=== PATIENT | female | born 1945 | race Caucasian/White ===

== ENCOUNTER 2017-07-05 09:02 | Inpatient (IN) ==
[~2017-07-05 09:02] MED LIST: ACETAMINOPHEN 500 MG TABLET PO ONE; DEXAMETHASONE 4 MG/ML INJECTION IVP ONE; EPINEPHrine PF 0.25 MG, BUPIVACAINE 0.25% PF 30 ML, MORPHINE SULFATE 15 MG, KETOROLAC I... OPSITE ONE; FAMOTIDINE PB 20 MG/50 ML BAG IV ONE; LIDOCAINE 1% (10mg/ml) 2mL INJ PF SDV ID ONE; METOCLOPRAMIDE 10mg/2ml INJECTION IVP ONE; ONDANSETRON 4 MG/2 ML INJECTION IVP ONE
[2017-07-05 09:29] VITALS: BMI 32.3
[2017-07-05] MEDS ORDERED: NS FLUSH BAG 500ml IV PRN (09:39)
[2017-07-05] MEDS: LR 1,000 ML IV SCH ×2 (10:05→13:22)
[2017-07-05] MEDS: NOZIN NASAL SWAB NAS ONE ×3 (11:23→11:25)
--- NOTE | 2017-07-05 11:46 | Anesthesia Preoperative Report ---
Anesthesia Preoperative Record - Date and Time Date: 07/05/17 Preoperative Diagnosis: Rt JASPER M16.11 Proposed Procedure: Right total hip NPO Since Date: 07/05/17 NPO Since Time: 00:00 Allergies/Adverse Reactions: Allergies Allergy/AdvReac Type Severity Reaction Status Date / Time cephalexin [From Keflex] AdvReac Verified 07/05/17 09:48 - Vital Signs Vital Signs: Temperature 98.7 F 07/05/17 09:27 Pulse Rate 112 H 07/05/17 09:27 Respiratory Rate 16 07/05/17 09:27 Blood Pressure 167/93 H 07/05/17 09:27 Pulse Oximetry 96 07/05/17 09:27 Height and Weight: Height 1.52 m Weight 75 kg Body Mass Index 32.3 - Medications Inpatient Medications: Current Medications Epinephrine HCl 0.25 mg/Bupivacaine HCl 30 ml/Morphine Sulfate 15 mg/Ketorolac Tromethamine 60 mg/Sodium Chloride 65.25 mls @ 1 mls/hr OPSITE INTRAOP ONE PRN Reason: Protocol Stop: 07/08/17 01:14 Lactated Ringer's (Lactated Ringers) 1,000 mls @ 50 mls/hr IV .Q20H BERNICE Last Admin: 07/05/17 10:05 Dose: 50 mls/hr Isopropyl Alcohol (Nozin Nasal Swab) 1 each ANA PREOP ONE Stop: 07/05/17 14:53 Last Admin: 07/05/17 11:25 Dose: 1 each Sodium Chloride (Iv Flush) 10 - 80 ml IV PRN PRN PRN Reason: Flushing Sodium Chloride (Normal Saline) 500 ml IV PRN PRN Last Admin: 07/05/17 10:18 Dose: 500 ml Tranexamic Acid (Cyklokapron) 1,000 mg TOP INTRAOP ONE Stop: 07/05/17 14:53 Home Medications: Home Medications Medication Instructions Recorded Confirmed Type Advil (Ibuprofen) 200 mg capsule 400 mg PO DAILY PRN #0 cap 11/28/16 07/05/17 History Vitamin D3 (cholecalciferol) 1,000 1,000 unit PO DAILY cap 11/28/16 07/05/17 History unit capsule biotin 5 mg capsule 5 mg PO DAILY cap 11/28/16 07/05/17 History omega 9-rvu-bxm-fish oil 1,000 mg 1 cap PO DAILY cap 11/28/16 07/05/17 History (120 mg-180 mg) capsule Tramadol HCl [Ultram] 50 mg PO BID 07/05/17 07/05/17 History Warfarin [Coumadin] 2.5 mg PO 3XW 07/05/17 07/05/17 History Warfarin [Coumadin] 5 mg PO 4XW 07/05/17 07/05/17 History Is Patient on Beta Stephen?: Yes Beta Stephen Last Dose Date/Time: 07/05/17 @0830 - Medical History Respiratory: Reports: Asthma (does not use inhalers), Pneumonia (in the s) DENIES: Sleep Apnea Cardiovascular: Reports: Abnormal EKG, Arrhythmia (AFib HR 115-120), Hypertension, Other (hx endocarditis) Gastrointestional: Reports: Gastroesophageal Reflux Disease Neuro/Musculoskeletal: Reports: HX.MS.OSAR (hips, knees, hands), Back Problems, Muscle Weakness (left arm) - Surgical History Neurological Surgeries: Reports: Other (cervical discectomy with fusion) HEENT Surgeries: Reports: Eye Surgery (blepharoplasty), Other (sinus surgery x2) Cardiac Surgeries/Treatments: Reports: Cardiac Catheterization GI Surgery/Treatments: Reports: Colonoscopy (diverticular disease) Musculoskeletal Surgery/Tx: Reports: Other (right bunionectomy) Anesthesia Reactions: None Hx Family Anesthesia Reaction: No History of Motion Sickness: No - Social History Smoking Status: Former smoker Hx Chewing Tobacco Use: No Second Hand Exposure: No Substance Use Type: does not use Alcohol Intake: never Alcohol Intake Frequency: does not drink - Pertinent Findings Laboratory: CBC and BMP 07/05/17 09:35 07/05/17 09:35 BMP 07/05/17 09:35 Sodium 138 Potassium 4.4 Chloride 102 Carbon Dioxide 26 BUN 15.0 Creatinine 0.7 Glucose 122 H Calcium 9.2 EKG: A-fib with RVR - Physical Exam Respiratory Exam: Present: lungs clear Cardiovascular Exam: Present: regular rate and rhythm - Airway Assessment Mallampati Score: II TMD: 3 Fingerbreadths Neck Extension: fair Overall Assessment: no airway concerns - ASA ASA Score: 3 - Plan Anesthesia: Neuroaxial Regional/Trunk Block: Spinal - Discussion Discussion: Discussed risks/options/alternatives of anesthesia and questions answered. Patient consents. Nursing pain assessment noted. Present for Discussion: spouse Attestation Statement: Prior to the delivery of any anesthetic medication, I examined the patient, developed the plan, obtained the patient's consent and discussed the risk and benefits of the procedure with the patient/guardian. - Additional Information Seen by Anesthesia: Yes
[2017-07-05] MEDS ORDERED: MIDAZOLAM 2mg/2ml INJECTION ONE (12:23)
[2017-07-05] MEDS ORDERED: DiltiaZEM 25 MG/5 ML INJECTION IVP ONE (12:51)
[2017-07-05] MEDS ORDERED: VANCOMYCIN 1,000 MG INJECTION ONE (13:09)
[2017-07-05] MEDS ORDERED: PHENYLEPHRINE INJ 10 MG/ML VIAL IV ONE (13:10)
[2017-07-05] MEDS ORDERED: SALINE FLUSH 10ml SYRINGE ONE (13:11)
[2017-07-05] MEDS ORDERED: PROPOFOL 500 MG/50 ML VIAL ONE ×2 (13:38)
[2017-07-05] MEDS ORDERED: VANCOMYCIN 1,000 MG INJECTION IAR ONE (14:11)
--- NOTE | 2017-07-05 14:20 | Operative Note ---
- Procedure Preoperative Diagnosis: Right hip primary degenerative joint disease Postoperative Diagnosis: Same as preoperative diagnosis. Surgeon: Joe Tipton MD [employer] Maker Hand: Tera Brown Complications: None. Anesthesia: Spinal. Estimated Blood Loss: See Anesthesia Record. Fluids: Please see Anesthesia Record. Description of Procedure: Mrs. Nolen and her right hip were identified and marked in the preoperative holding area. She was brought back to the operating suite and spinal anesthetic was administered. She was then placed in a lateral decubitus position with her right hip up. The right lower extremity was prepped and draped in my normal sterile fashion. Timeout was performed. The [employer] robotic arm was used to assist with the surgery. A pelvic array was placed into the iliac crest through three small incisions. A direct superior approach was utilized. An approximately 15 cm incision was made in the skin and dissection carried down to the muscle fascia which was then split in line with skin incision. A Charnley retractor was placed. The short external rotators were identified and tagged and detached. A capsulotomy was performed and the hip dislocated. A femoral neck osteotomy was performed at the pre-templated level measuring down from the femoral head. The head was removed and acetabulum exposed. Labrum was removed. The acetabulum was then registered with the robot. The robotic arm was then used to ream with a 49 reamer. The robot then was again used to place a 50 Trident cup in 40 of tilt and 25 of anteversion. A liner was then placed. The proximal femur was exposed and prepared with a cookie cutter followed by reaming and broaching to a size 4. We trialed with a - 5 36 mm head. After thorough irrigation a final Accolade 2 size 4 stem with 127 neck was placed. Leg length and offset were checked with the robot and were good. A final -5 ceramic 36 mm head was placed and the hip reduced. Betadine solution was used to irrigate throughout the case. It was followed by normal saline irrigation. Joint cocktail was injected throughout soft tissue. The capsulotomy was repaired with Ethibond. Short external rotators were also repaired with Ethibond. 1 g of vancomycin powder was placed into the wound. The muscle fascia was then repaired with #1 Vicryl. I then left my nurses medical assistants phlebotomists to close the subcutaneous tissue with 2-0 Vicryl followed by running 4-0 Monocryl skin followed by Dermabond and a sterile dressing. The patient with any placed back into supine position and taken to recovery room in the care of anesthesia.
[2017-07-05] MEDS ORDERED: TRANEXAMIC ACID 1,000mg/10ml INJECTION TOP ONE (14:52)
[2017-07-05] MEDS ORDERED: SALINE FLUSH 10ml SYRINGE IV PRN (14:52)
--- NOTE | 2017-07-05 15:31 | XRay Report ---
Indication: postoperative image PROCEDURE: XR pelvis w/ 1 view RT hip: Encounter: Initial Comparison: May 28, 2017 Findings: Postoperative changes of right total hip replacement are seen. There is expected postoperative subcutaneous gas. No evidence of hardware failure or acute fracture. No retained radiopaque surgical instruments or sponges seen. Impression: New right total hip prosthesis without evidence of immediate complication. .
[2017-07-05] MEDS ORDERED: DiphenhydrAMINE 50 MG/ML INJECTION IVP PRN (15:35)
[2017-07-05] MEDS ORDERED: ONDANSETRON 4 MG/2 ML INJECTION IVP PRN (15:35)
[2017-07-05] MEDS ORDERED: NOZIN NASAL SWAB NAS ONE (15:35)
[2017-07-05] MEDS ORDERED: WARFARIN - PHARMACY CONSULT MC ONE (15:35)
[2017-07-05] MEDS ORDERED: DiphenhydrAMINE 25 MG CAPSULE PO PRN (15:35)
[2017-07-05] MEDS ORDERED: LORazepam 1 MG TABLET PO PRN (15:35)
--- NOTE | 2017-07-05 16:07 | Pharmacy Consult ---
Pharmacy Consult-Warfarin - Laboratory Information 07/05/17 09:35 INR 1.14 WARFARIN THERAPY: Day 1 post Right THR. Pt is on chronic Warfarin therapy for A. Fib. Home dose reported as 5mg four times weekly + 2.5mg three times weekly. Noted drug - drug interaction with Omeprazole 40mg po daily, Tramadol 50-100mg q6h prn. Both can increase the INR. Baseline INR was prior to OR. Will give Warfarin 5mg today yet. Start daily INR's in morning. Pt is covered with Enoxaparin 40mg SQ daily until therapeutic. thank you
[2017-07-05] MEDS: NS 1,000 ML IV SCH (16:18)
[2017-07-05] MEDS: ACETAMINOPHEN 325 MG TABLET PO SCH ×2 (16:44→23:14)
[2017-07-05] MEDS ORDERED: WARFARIN 5 MG TABLET PO SCH (17:00)
[2017-07-05] MEDS ORDERED: SENNOSIDES 8.6 MG TABLET PO SCH (21:00)
[2017-07-05] MEDS: DEXAMETHASONE 20 MG/5 ML INJECTION IVP SCH (23:10)
[2017-07-05] MEDS: ENOXAPARIN 40 MG/0.4 ML INJECTION SQ SCH (23:12)
[2017-07-05] MEDS: DOCUSATE SODIUM 100 MG CAPSULE PO SCH (23:15)
[2017-07-05] MEDS: NOZIN NASAL SWAB NAS SCH (23:15)
[2017-07-05] MEDS: TRAMADOL 50 MG TABLET PO PRN (23:30)
[2017-07-06] MEDS: NS 1,000 ML IV SCH (06:43)
[2017-07-06] MEDS: DEXAMETHASONE 20 MG/5 ML INJECTION IVP SCH (06:43)
[2017-07-06] MEDS: NOZIN NASAL SWAB NAS SCH ×2 (06:43→13:53)
--- NOTE | 2017-07-06 08:21 | Pharmacy Consult ---
Pharmacy Consult-Warfarin - Laboratory Information 07/05/17 07/06/17 09:35 04:06 INR 1.14 1.25 H - Consult Information Day 2 post Right THR. Pt is on chronic Warfarin therapy for A. Fib. Home dose reported as 5mg four times weekly + 2.5mg three times weekly. Noted drug - drug interaction with Omeprazole 40mg po daily, Tramadol 50-100mg q6h prn. Both can increase the INR. The goal INR range is 2.0-3.0. Date INR Dose 07/05 1.14 5 mg 07/06 1.25 5 mg I ordered Warfarin 5 mg orally today. The patient is covered with Enoxaparin 40mg SQ daily until the INR is therapeutic. The pharmacy will continue to monitor the INR's and adjust the warfarin accordingly. Thank you for Warfarin Dosing Protocol, Ricki Silvestre, Pharmacist.
[2017-07-06] MEDS: ACETAMINOPHEN 325 MG TABLET PO SCH ×2 (08:32→12:45)
[2017-07-06] MEDS: DOCUSATE SODIUM 100 MG CAPSULE PO SCH (08:33)
--- NOTE | 2017-07-06 08:39 | Orthopedic Progress Note ---
Date: Date: 07/06/17 Time: 835 Subjective/Severity of Illness: Mrs Nolen is doing very well. Pain is controlled. No cough, SOA or CP. She has been up with good tolerance. Takes Coumadin chronically for A fib. She is aware of the need for Lovenox to bridge her. Hgb 11.1 Afeb and VSS. INR 1.25 today. She expects discharge home with her later today. Orthopedic Objective PO Vital signs: Temperature 98 F 07/06/17 03:00 Pulse Rate 119 H 07/06/17 07:00 Respiratory Rate 14 07/06/17 07:00 Blood Pressure 144/69 H 07/06/17 07:00 Pulse Oximetry 99 07/06/17 07:00 Height and Weight: Height 5 ft Weight 179 lb 3.773 oz Body Mass Index 32.3 - Constitutional General Appearance: Present: alert, cooperative, no acute distress - Respiratory Exam Present: non-labored - Cardiovascular Exam Present: pedal pulses intact - Extremities Exam Extremities: Present: pulses intact. Absent: calf tenderness - Surgical Site Incision: Mepilex dressing intact, no drainage, other (Mild drainage on the pin sites of the illiac crest. Will change this today.) - Integumentary Exam Present: pink, warm, dry - Neurological Exam Present: no deficits - Psychiatric Exam Present: alert, normal affect - Labs Result Diagrams: 07/06/17 04:06 07/06/17 04:06 Abnormal lab results 07/05/17 07/05/17 07/06/17 Range/Units 09:35 09:35 04:06 Hgb 11.1 L D (12-16) GM/DL Hct 34.1 L D (36-46) % Lymph % (Auto) 20.6 L (23-45) % [place] % (Auto) 12.4 H (0-9.0) % INR (0.99-1.21) Creatinine (0.7-1.2) MG/DL BUN/Creatinine Ratio (6-26) RATIO Glucose 122 H (65-110) MG/DL 07/06/17 07/06/17 Range/Units 04:06 04:06 Hgb (12-16) GM/DL Hct (36-46) % Lymph % (Auto) (23-45) % [place] % (Auto) (0-9.0) % INR 1.25 H (0.99-1.21) Creatinine 0.6 L (0.7-1.2) MG/DL BUN/Creatinine Ratio 28 H (6-26) RATIO Glucose 146 H (65-110) MG/DL H & H 07/05/17 07/06/17 Range/Units 09:35 04:06 Hgb 14.1 11.1 L D (12-16) GM/DL Hct 43.2 34.1 L D (36-46) % Coagulation 07/05/17 07/06/17 Range/Units 09:35 04:06 INR 1.14 1.25 H (0.99-1.21) Orthopedic Assessment and Plan (1) Primary osteoarthritis of right hip Status: Acute Assessment and Plan: Resume home dose of Coumadin and bridge with Lovenox until INR is therapeutic. Will check an INR next week to confirm adequate coverage, and turn over management to her PCP. SCD's and early mobilization for added DVT coverage. PT/OT services to improve independent function. Discharge Planning per Case Management. - Anticoagulation Therapy Anticoagulation: Resume home anticoagulant (Lovenox x 5 days and check INR next week.) Hospital Course Summary Disclaimer: The visit summary below is not to be considered part of the above Progress Note.
[2017-07-06] MEDS ORDERED: OMEPRAZOLE 20 MG CAPSULE PO SCH (09:00)
[2017-07-06] MEDS ORDERED: POLYETHYL GLYCOL 3350 17gm PACKET PO SCH (09:00)
[2017-07-06] MEDS ORDERED: BENAZEPRIL 10 MG TABLET PO SCH (09:00)
[2017-07-06] MEDS: TRAMADOL 50 MG TABLET PO PRN (09:57)
[2017-07-06] MEDS ORDERED: WARFARIN 5 MG TABLET PO SCH (12:00)
[2017-07-06 12:11] VITALS: BP 116/68; PULSE 110; RESP 12; TEMP 98.6; O2SAT 98
[2017-07-06] MEDS: ENOXAPARIN 40 MG/0.4 ML INJECTION SQ SCH (13:26)
[2017-07-06] MEDS ORDERED: SENNOSIDES 8.6 MG TABLET PO PRN (14:43)
[2017-07-07] MEDS ORDERED: BISACODYL 10 MG SUPPOSITORY RECTALLY SCH (20:00)
== END 2017-07-06 13:45 | disposition home or self-care (01) | DRG 470 ==
LOC: SUR 09:02 → SRG 09:03 → EDSTATUS 11:00 → SRG 15:24
PROVIDERS: ADMIT Orthopaedic Surgery; ATTEND Orthopaedic Surgery

== ENCOUNTER 2017-10-04 06:50 | Inpatient (IN) ==
[~2017-10-04 06:50] MED LIST changes: +CLINDAMYCIN PB 900 MG/50 ML BAG IV ONE; -EPINEPHrine PF 0.25 MG, BUPIVACAINE 0.25% PF 30 ML, MORPHINE SULFATE 15 MG, KETOROLAC I... OPSITE ONE
[2017-10-04 07:07] VITALS: BMI 30.8
[2017-10-04] MEDS: LR 1,000 ML IV SCH ×3 (07:30→10:22)
[2017-10-04] MEDS: NOZIN NASAL SWAB NAS SCH ×6 (07:31→21:08)
--- NOTE | 2017-10-04 07:50 | Anesthesia Preoperative Report ---
Anesthesia Preoperative Record - Date and Time Date: 10/04/17 Preoperative Diagnosis: Rt TKA M17.11 primary osteoarthritis Proposed Procedure: right total knee arthroplasty NPO Since Date: 10/03/17 NPO Since Time: 23:00 Allergies/Adverse Reactions: Allergies Allergy/AdvReac Type Severity Reaction Status Date / Time cephalexin [From Keflex] AdvReac Verified 10/04/17 07:14 - Vital Signs Vital Signs: Temperature 98.5 F 10/04/17 07:05 Pulse Rate 92 10/04/17 07:25 Respiratory Rate 14 10/04/17 07:05 Blood Pressure 150/92 H 10/04/17 07:05 Pulse Oximetry 99 10/04/17 07:05 Height and Weight: Height 1.52 m Weight 71.6 kg Body Mass Index 30.8 - Medications Inpatient Medications: Current Medications Epinephrine HCl 0.25 mg/Bupivacaine HCl 30 ml/Ketorolac Tromethamine 60 mg/ Sodium Chloride 62.25 mls @ 1 mls/hr OPSITE INTRAOP ONE PRN Reason: Protocol Stop: 10/06/17 22:14 Lactated Ringer's (Lactated Ringers) 1,000 mls @ 50 mls/hr IV .Q20H BERNICE Last Admin: 10/04/17 07:30 Dose: 50 mls/hr Isopropyl Alcohol (Nozin Nasal Swab) 1 each ANA Q1M BERNICE Stop: 10/04/17 15:03 Last Admin: 10/04/17 07:35 Dose: 1 each Sodium Chloride (Iv Flush) 10 - 80 ml IV PRN PRN PRN Reason: Flushing Tranexamic Acid (Cyklokapron) 1,000 mg TOP INTRAOP ONE Stop: 10/04/17 15:03 Home Medications: Home Medications Medication Instructions Recorded Confirmed Type Vitamin D3 (cholecalciferol) 1,000 1,000 unit PO DAILY cap 11/28/16 10/04/17 History unit capsule omega 0-qgp-clu-fish oil 1,000 mg 1 cap PO DAILY cap 11/28/16 10/04/17 History (120 mg-180 mg) capsule benazepril 10 mg tablet 10 mg PO DAILY #90 tab 03/29/17 10/04/17 Rx metoprolol tartrate 25 mg tablet 25 mg PO BID #180 tab 10/27/17 04/12/18 Rx ergocalciferol (vitamin D2) 50,000 50,000 unit PO DAILY #2 cap 06/26/17 Rx unit capsule Ultram (Tramadol) 50 mg tablet 50 - 100 mg PO Q6H PRN #60 tab 07/20/17 10/04/17 Rx Flonase (Fluticasone) 50 mcg nasal 1 spray INTRANASAL DAILY PRN #9.9 g 09/25/17 10/04/17 Rx spray Zantac (Ranitidine) 75 mg tablet 75 mg PO BID PRN 09/25/17 10/04/17 History warfarin 5 mg tablet 2.5 mg PO SUWE tab 09/25/17 10/04/17 History warfarin 5 mg tablet 5 mg PO MOTUTHFRSA tab 09/25/17 10/04/17 History ergocalciferol (vitamin D2) 50,000 50,000 unit PO DAILY #2 cap 09/27/17 Rx unit capsule Prilosec (Omeprazole) 40 mg 40 mg PO DAILY #30 cap 10/02/17 10/04/17 Rx capsule,delayed release Is Patient on Beta Stephen?: Yes Beta Stephen Last Dose Date/Time: 0600 - Medical History Respiratory: Reports: Asthma (mild ), Pneumonia DENIES: Sleep Apnea Cardiovascular: Reports: Abnormal EKG, Arrhythmia (AFib), Hypertension, Other ( hx endocarditis) Gastrointestional: Reports: Gastroesophageal Reflux Disease Neuro/Musculoskeletal: Reports: HX.MS.OSAR (hips, knees, hands), Back Problems, Muscle Weakness (left arm), Other (50 yrs ago had endocarditis ) - Surgical History Neurological Surgeries: Reports: Other (cervical discectomy with fusion) HEENT Surgeries: Reports: Eye Surgery (blepharoplasty), Other (sinus surgery x2) Cardiac Surgeries/Treatments: Reports: Cardiac Catheterization GI Surgery/Treatments: Reports: Colonoscopy (diverticular disease), EGD Musculoskeletal Surgery/Tx: Reports: Total Hip Replacement (Rt JASPER 07-05-17), Other (right bunionectomy) Reproductive Surgery/Treatment: Reports: Other (fallopian tube "opened up") Anesthesia Reactions: None Hx Family Anesthesia Reaction: No History of Motion Sickness: No - Social History Smoking Status: Former smoker Hx Chewing Tobacco Use: No Second Hand Exposure: No Substance Use Type: does not use Alcohol Intake: never Alcohol Intake Frequency: does not drink - Pertinent Findings Laboratory: CBC and BMP 10/04/17 07:17 EKG: A-fib - Physical Exam Respiratory Exam: Present: lungs clear, bilateral breath sounds equal - Airway Assessment Mallampati Score: III TMD: 2 Fingerbreadths Neck Extension: fair Overall Assessment: may be difficult intubation - ASA ASA Score: 3 - Plan Anesthesia: Neuroaxial Regional/Trunk Block: Spinal - Discussion Discussion: Discussed risks/options/alternatives of anesthesia and questions answered. Patient consents. Nursing pain assessment noted. Attestation Statement: Prior to the delivery of any anesthetic medication, I examined the patient, developed the plan, obtained the patient's consent and discussed the risk and benefits of the procedure with the patient/guardian. - Additional Information Seen by Anesthesia: Yes
[2017-10-04] MEDS ORDERED: BUPIVACAINE 0.5% (5mg/ml) PF 30ml INJ SDV ONE (08:00)
[2017-10-04] MEDS ORDERED: EPINEPHrine PF 0.25 MG, BUPIVACAINE 0.25% PF 30 ML, KETOROLAC INJ 60 MG in NS 30 ML OPSITE ONE (08:00)
[2017-10-04] MEDS ORDERED: FentaNYL 250 MCG/5 ML INJECTION ONE (08:01)
[2017-10-04] MEDS ORDERED: MIDAZOLAM 2mg/2ml INJECTION ONE (08:05)
[2017-10-04] MEDS ORDERED: PROPOFOL 20 ML ONE (08:43)
[2017-10-04] MEDS ORDERED: KETAMINE 500 MG/10 ML INJECTION ONE (08:43)
[2017-10-04] MEDS ORDERED: PHENYLEPHRINE INJ 10 MG/ML VIAL IV ONE (09:00)
[2017-10-04] MEDS ORDERED: VANCOMYCIN 1,000 MG INJECTION IAR ONE (09:36)
--- NOTE | 2017-10-04 10:04 | Operative Note ---
- Procedure Preoperative Diagnosis: Right knee primary degenerative joint disease Postoperative Diagnosis: Same as preoperative diagnosis. Surgeon: Joe Tipton MD [employer] Laborer: Tera Brown Complications: None. Anesthesia: Spinal. Estimated Blood Loss: See Anesthesia Record. Fluids: Please see Anesthesia Record. Description of Procedure: Mrs. Nolen and her right knee were identified and marked in the preoperative holding area. She was brought back to the operating suite. Spinal anesthetic was administered and she was placed supine on the operating table. The right lower extremity was prepped and draped in my normal sterile fashion. Timeout was performed. The [employer] robotic arm was used during the surgery. She will partially correctable valgus deformity with no flexion contracture. A standard anterior midline incision followed by medial parapatellar arthrotomy was performed. Anterior fat pad and meniscus were removed. The patella was everted and a patellar osteotomy was performed leaving 14mm of bone. The majority of her cartilage loss of the lateral compartment though she did have several lesions in the medial compartment. Large osteophytes were noted laterally. Tibial and femoral arrays and checkpoints were placed both within the original incision. The bone was then registered with the [employer] robot. Osteophytes were removed and gaps were captured both 90 and 0 with correction. We balanced her with 18 mm gaps throughout these the [employer] robotic software. The [employer] robotic arm was then used to assist with the bone cuts. Posterior osteophytes and remaining meniscus were removed. Trial components were placed. We used a 3 femur and a 4 tibia with a 9 mm spacer and a 32 patella. She tracked well and was well balanced throughout range of motion. The arrays were then removed and the knee exsanguinated and the tourniquet inflated to 250 mmHg. The tibia was then stamped the proper rotation. I then cemented the components into place and allowed them to cure in extension. During this time the tourniquet was let down and hemostasis was obtained with electrocautery. After the cement had cured the knee again was taken through range of motion and was well balanced and tracked well. After a final thorough irrigation with normal saline as well as Betadine 1 g vancomycin powder was placed into the knee joint. We then closed the capsule with #1 Vicryl. I then left my social services assistant closed the subcutaneous tissue with both 2-0 Vicryl in an interrupted fashion as well as a running 0 V-lock barbed suture. The subcutaneous tissue closed with a treva Monoderm. Mediplex dressing will be placed and the patient will be taken back to the recovery room under the care of anesthesia.
[2017-10-04] MEDS ORDERED: RANITIDINE 150 MG TABLET PO PRN (11:02)
[2017-10-04] MEDS ORDERED: WARFARIN - PHARMACY CONSULT MC ONE (11:02)
[2017-10-04] MEDS ORDERED: ONDANSETRON 4 MG/2 ML INJECTION IVP PRN (11:02)
[2017-10-04] MEDS ORDERED: NOZIN NASAL SWAB NAS ONE (11:02)
[2017-10-04] MEDS ORDERED: DiphenhydrAMINE 50 MG/ML INJECTION IVP PRN (11:02)
[2017-10-04] MEDS ORDERED: LORazepam 1 MG TABLET PO PRN (11:02)
[2017-10-04] MEDS ORDERED: DiphenhydrAMINE 25 MG CAPSULE PO PRN (11:02)
[2017-10-04] MEDS: NS 1,000 ML IV SCH (11:14)
--- NOTE | 2017-10-04 11:33 | Pharmacy Consult ---
Pharmacy Consult-Warfarin - Laboratory Information 10/04/17 07:17 INR 1.02 - Consult Information COUMADIN CONSULT (Initial): Dx: ATRIAL FIB Baseline INR = 1.02. Will give Warfarin 5mg today. This is patient's home dose. Will continue to monitor. Thank you.
--- NOTE | 2017-10-04 11:46 | XRay Report ---
Indication: postoperative image PROCEDURE: XR knee RT 2V: Encounter: Initial Comparison: None. Findings: The patient has had a right total knee arthroplasty. The mineralization and the alignment appear well preserved. There is no definite periosteal reaction or bony lesion. There is no focal soft tissue swelling. There is no clear displaced fracture or bony destructive process. No dislocation or subluxation. No radiopaque foreign body. IMPRESSION: Anatomic alignment status post right total knee arthroplasty. .
--- NOTE | 2017-10-04 11:53 | Anesthesia Postoperative Note ---
- Date and Time Date: 10/04/17 Time: 10:45 - Status Patient Participated in Evaluation: Patient Participated in Person Vital Signs: Temperature 97.4 F 10/04/17 11:15 Pulse Rate 94 10/04/17 11:15 Respiratory Rate 20 10/04/17 11:15 Blood Pressure 132/87 10/04/17 11:15 Pulse Oximetry 94 10/04/17 11:15 Respiratory Function: Airway Patent Cardiovascular Function: Regular Pulse EKG: A-fib Mental Status: Alert and Oriented Pain Intensity: 0 Hydration: IV Infusing Complications During Recover: None Apparent - Follow-Up Instructions Instructions: Per Surgeon
--- NOTE | 2017-10-04 11:55 | Anesthesia Procedure Note ---
Peripheral Nerve Blockade - Procedure Physician: Alirio Tipton MD Date: 10/04/17 Surgical Procedure: right knee arthroplasty Discussion: Discussed risks/options/alternatives of anesthesia and questions answered. Patient consents. Nursing pain assessment noted. Block Start: 10:27 Block Stop: 10:29 Blocked Employed: Adductor Canal Indication: Post-Operative Pain Approach: Right Side Confirmed Position: Supine Patient: Consent, Risks/Benefits Discussed, Informed, Post Block Act. Discussed IV Sedation: No Initial Vital Signs: Temperature 98.5 F 10/04/17 07:05 Temperature Source Oral 10/04/17 07:05 Pulse Rate 101 H 10/04/17 07:05 Respiratory Rate 14 10/04/17 07:05 Blood Pressure 150/92 H 10/04/17 07:05 Blood Pressure Mean 111 10/04/17 07:05 Blood Pressure Position Sitting 10/04/17 07:05 Pulse Oximetry 99 10/04/17 07:05 Oxygen Delivery Method 10/04/17 07:05 Post Vital Signs: Temperature 97.4 F 10/04/17 11:15 Pulse Rate 94 10/04/17 11:15 Respiratory Rate 20 10/04/17 11:15 Blood Pressure 132/87 10/04/17 11:15 Pulse Oximetry 94 10/04/17 11:15 - Injectate Bupivacaine (%): 0.5 Bupivacaine (mL): 15 Injection: Injection made incrementally with constant monitoring and aspiration every ml
[2017-10-04] MEDS: ACETAMINOPHEN 325 MG TABLET PO SCH ×3 (13:41→20:24)
[2017-10-04] MEDS: CLINDAMYCIN PB 900 MG/50 ML BAG IV SCH ×2 (14:34→20:25)
[2017-10-04] MEDS ORDERED: SALINE FLUSH 10ml SYRINGE IV PRN (14:56)
[2017-10-04] MEDS ORDERED: WARFARIN 5 MG TABLET PO ONE (15:00)
[2017-10-04] MEDS ORDERED: TRANEXAMIC ACID 1,000 MG/10 ML VIAL TOP ONE (15:02)
[2017-10-04] MEDS: TRAMADOL 50 MG TABLET PO PRN ×2 (15:40→18:53)
[2017-10-04] MEDS: --POM--METOPROLOL TARTRATE 25mg TABLET PO SCH (16:55)
[2017-10-04] MEDS: DOCUSATE SODIUM 100 MG PO SCH (20:25)
[2017-10-04] MEDS ORDERED: SENNOSIDES 8.6 MG TABLET PO SCH (21:00)
[2017-10-04] MEDS ORDERED: ENOXAPARIN 40 MG/0.4 ML INJECTION SQ SCH (21:00)
[2017-10-05] MEDS: NS 1,000 ML IV SCH (00:45)
[2017-10-05] MEDS: CLINDAMYCIN PB 900 MG/50 ML BAG IV SCH (01:54)
[2017-10-05] MEDS: NOZIN NASAL SWAB NAS SCH (05:40)
[2017-10-05] MEDS ORDERED: OMEPRAZOLE 20 MG CAPSULE PO SCH (06:30)
[2017-10-05] MEDS ORDERED: OMEPRAZOLE 40 MG PO SCH (06:30)
--- NOTE | 2017-10-05 07:32 | Pharmacy Consult ---
Pharmacy Consult-Warfarin - Laboratory Information 10/04/17 10/05/17 07:17 03:59 INR 1.02 1.10 - Consult Information Target INR is 1.5-2.5. Warfarin 5mg ordered for today. This is patient's home dose. Will continue to monitor. Thank you.
[2017-10-05 07:48] VITALS: TEMP 98
--- NOTE | 2017-10-05 08:07 | Orthopedic Progress Note ---
Date: Date: 10/05/17 Time: 801 Subjective/Severity of Illness: Doing very well. Minimal pain. Dressing dry. Hgb 11.9 Na 133 but pt asymptomatic. She has been up with good tolerance. No CP, cough or SOA. Hopes to go home today. Orthopedic Exam Vital signs: Temperature 98 F 10/05/17 07:00 Pulse Rate 89 10/05/17 07:00 Respiratory Rate 14 10/05/17 07:00 Blood Pressure 137/84 10/05/17 07:00 Pulse Oximetry 100 10/05/17 07:00 - Constitutional General Appearance: Present: alert, cooperative, no acute distress - Respiratory Exam Present: non-labored - Cardiovascular Exam Present: pedal pulses intact - Extremities Exam Present: pulses intact. Absent: calf tenderness - Dressing Dressing: dry, intact, no drainage - Integumentary Exam Present: pink, warm, dry, intact - Neurological Exam Present: intact to light touch, no deficits - Psychiatric Exam Present: alert, normal affect - Labs Result Diagrams: 10/05/17 03:59 10/05/17 03:59 Abnormal lab results 10/05/17 10/05/17 Range/Units 03:59 03:59 Hgb 11.9 L D (12-16) GM/DL Sodium 133 L (134-144) MEQ/L Creatinine 0.6 L (0.7-1.2) mg/dL BUN/Creatinine Ratio 28 H (6-26) RATIO Glucose 140 H (65-110) MG/DL Calculated Osmolality 260 L (261-280) MOSM/KG H & H 10/04/17 10/05/17 Range/Units 07:17 03:59 Hgb 14.4 11.9 L D (12-16) GM/DL Hct 44.4 (36-46) % Coagulation 10/04/17 10/05/17 Range/Units 07:17 03:59 INR 1.02 1.10 (0.92-1.18) Orthopedic Assessment and Plan (1) Primary osteoarthritis of right knee Status: Acute Assessment and Plan: Coumadin protocol with Lovenox bridge for VTE prophylaxis. Takes Coumadin chronically for A Fib. PCP to manage Coumadin after discharge. Will cover with 5 days of Lovenox until INR is therapeutic. SCD's for added DVT coverage. check lytes at noon to watch trend of Na before discharge. PT/OT services to improve independent function. Discharge Planning per Case Management. - Anticoagulation Therapy Anticoagulation: Coumadin therapy with Lovenox bridge x30 days Hospital Course Summary Disclaimer: The visit summary below is not to be considered part of the above Progress Note.
[2017-10-05] MEDS ORDERED: OMEGA PO SCH (09:00)
[2017-10-05] MEDS ORDERED: FISH OIL 1200 MG PO SCH (09:00)
[2017-10-05] MEDS ORDERED: POLYETHYL GLYCOL 3350 17gm PACKET PO SCH (09:00)
[2017-10-05] MEDS ORDERED: [UNRECOGNIZED DRUG - OTHER] PO SCH (09:00)
[2017-10-05] MEDS ORDERED: EPA PO SCH (09:00)
[2017-10-05] MEDS ORDERED: DHA PO SCH (09:00)
[2017-10-05] MEDS ORDERED: BENAZEPRIL 10 MG PO SCH (09:00)
[2017-10-05] MEDS ORDERED: FISH OIL PO SCH (09:00)
[2017-10-05] MEDS: --POM--METOPROLOL TARTRATE 25mg TABLET PO SCH (09:16)
[2017-10-05] MEDS: DOCUSATE SODIUM 100 MG PO SCH (09:17)
[2017-10-05] MEDS: ACETAMINOPHEN 325 MG TABLET PO SCH (09:21)
[2017-10-05] MEDS ORDERED: SENNOSIDES 8.6 MG TABLET PO PRN (10:15)
[2017-10-05] MEDS: TRAMADOL 50 MG TABLET PO PRN (10:35)
[2017-10-05] MEDS ORDERED: WARFARIN 5 MG TABLET PO SCH (12:00)
[2017-10-05 12:06] VITALS: BP 123/68; PULSE 82; RESP 18; O2SAT 93
--- NOTE | 2017-10-05 12:52 | Discharge Summary ---
Orthopedic Discharge Info Date of admission: 10/04/17 07:37 Primary care physician: Alaina Julien APRN Attending Physician: Alirio Tipton MD Consults: 10/04/17 07:03 Consult to Anesthesiology [CONS] Routine Reason For Exam: Preoperative Assessment 10/04/17 11:02 Case Management Consult [CONS] Routine Reason For Exam: Discharge Planning DME-Walker [CONS] Routine Height: 5 ft Weight: 157 lb 13.616 oz Total Joint Outpatient Therapy [CONS] Routine Comment: Remove dressing in 2 weeks - Discharge Diagnosis (1) Primary osteoarthritis of right knee Status: Acute - Procedures Procedures: Procedures Right knee DJD - Laboratory Result Diagrams: 10/05/17 03:59 10/05/17 12:06 Laboratory: Abnormal lab results 10/05/17 10/05/17 10/05/17 Range/Units 03:59 03:59 12:06 Hgb 11.9 L D (12-16) GM/DL Sodium 133 L 133 L (134-144) MEQ/L Chloride 97 L (98-107) MEQ/L Creatinine 0.6 L (0.7-1.2) mg/dL BUN/Creatinine Ratio 28 H (6-26) RATIO Glucose 140 H (65-110) MG/DL Calculated Osmolality 260 L (261-280) MOSM/KG H & H 10/04/17 10/05/17 Range/Units 07:17 03:59 Hgb 14.4 11.9 L D (12-16) GM/DL Hct 44.4 (36-46) % Coagulation 10/04/17 10/05/17 Range/Units 07:17 03:59 INR 1.02 1.10 (0.92-1.18) Orthopedic Discharge HPI - HPI Comments This patient was admitted for elective surgical tx of end stage degenerative joint disease that failed to respond to conservative treatment. Further details of this is found in the admission H&P. Orthopedic Hospital Course Hospital course: 10/05/17 12:50 After appropriate preoperative clearance and signing of operative consent, the patient was given IV antibiotics, according to orthopedic protocol. The patient was taken to the operating room and underwent elective joint arthroplasty. Following surgery, antibiotics were discontinued less than 24 hours according to joint protocol. Appropriate anticoagulants were initiated and SCDs added for DVT prevention. The dressing was clean, dry, and intact. Pain control was obtained via multimodal approach. Bowel motivation addressed with scheduled and PRN medications. Early mobilization was initiated through PT services. Discharge arrangements made by a collaborative effort between the patient and Case Management. Sodium was 133, post op and rechecked, found to be stable and asymptomatic. Follow-up is scheduled in 2-3 weeks. Discharge instructions given by orthopedic providers and nursing staff at discharge. Discharge condition was good. Care extended to > 2 midnight stays?: No Discharge Plan - Med Rec/Dispo Referrals/Follow Up: Alirio Tipton MD [Physician] - 10/29/17 11:30 am Jennifer Instructions: [facility] Postop Instructions Additional Instructions: [facility] ON 10/09/2017 AT 11:15AM FOR PHYSICAL THERAPY EVAL. PHONE [phone]. FOLLOW UP WITH PCP TO HAVE AN INR DRAWN AND COUMADIN MANAGEMENT. Prescriptions: New Acetaminophen [Tylenol] 650 mg PO QID tab Enoxaparin Sodium [Lovenox] 40 mg SQ Q24H #5 syringe PEG 3350 17gm PACKET [Miralax] 17 gm PO DAILY packet Continue Tramadol [Ultram] 50 - 100 mg PO Q6H PRN #60 tab PRN Reason: Pain Vitamin D3 (cholecalciferol) 1,000 unit capsule 1,000 unit PO DAILY cap omega 2-ppi-djc-fish oil 1,000 mg (120 mg-180 mg) capsule 1 cap PO DAILY cap benazepril 10 mg tablet 10 mg PO DAILY #90 tab metoprolol tartrate 25 mg tablet 25 mg PO BID #180 tab ergocalciferol (vitamin D2) 50,000 unit capsule 50,000 unit PO DAILY #2 cap warfarin 5 mg tablet 2.5 mg PO SUWE tab ergocalciferol (vitamin D2) 50,000 unit capsule 50,000 unit PO DAILY #2 cap warfarin 5 mg tablet 5 mg PO MOTUTHFRSA #90 tab Zantac (Ranitidine) 75 mg tablet 75 mg PO BID PRN PRN Reason: Acid Reflux Flonase (Fluticasone) 50 mcg nasal spray 1 spray INTRANASAL DAILY PRN #9.9 g PRN Reason: allergy symptoms Prilosec (Omeprazole) 40 mg capsule,delayed release 40 mg PO DAILY #30 cap - Disposition 01 Discharged Home, Self-Care - Dismissal Complete Discharge Instructions are:: Complete
[2017-10-06] MEDS ORDERED: BISACODYL 10 MG SUPPOSITORY RECTALLY SCH (20:00)
== END 2017-10-05 13:50 | disposition home or self-care (01) | DRG 470 ==
LOC: SUR 06:50 → NMC.PERIOP 06:54 → SRG 10:58
PROVIDERS: ADMIT Orthopaedic Surgery; ATTEND Orthopaedic Surgery